=== PATIENT | male | born 1965 | race Caucasian/White ===

== ENCOUNTER → 2016-06-26 | Outpatient (CLI) | payer OTHER ==
[~2016-06-26] MED LIST: A/B OTIC AD; ALBUTEROL17 GM INH; AMOXICILLIN500 M1 PO; AMOXIL500 MG PO; ASPIRIN81 MG PO; AURALGAN EAR DR14 ML OT; BACTRIM DS TABL1 TA1; BACTRIM DS TABL1 TA1 PO; CINNAMON BARK1 GM PO; CLARITIN10 M2 PO; CORTISPORI10 ML OTIC AD; COUMADIN PO; FLOMAX0.4 M1 PO; GLUCOTROL PO; HEARTBURN RELIE75 M2 PO; HYDROCHLOROTHIA25 MG PO; INVOKANA300 MG PO; K-DUR20 ME1 PO; LANTUS100 U/ML SUBQ; LASIX20 MG PO; LIPITOR80 MG PO; LISINOPRIL PO; LOPRESSOR PO; LORTAB 5/500 TA1 TA1 PO; MECLIZINE HCL12.5 M2 PO; MECLIZINE HCL12.5 MG PO; METFORMIN HCL500 M1 PO; NO MEDICATIONS; NORCO 10-325 TA1 TAB PO; PRINIVIL40 MG PO; TOPAMAX PO; TOPROL XL PO; ULTRAM PO; XARELTO10 MG PO
--- NOTE | ~2016-06-26 | CR213 ---
[facility]. [facility] A Service of [facility] & [facility] / [facility] RADIOLOGY TEXT RESULTS PATIENT: CAS MORRIS LOCATION: [facility] : 63 UNIT #: [id number] AGE: [address]: SHAVONNE SALMERON SEX: M ORDER DR: [id number] [place] [id number] O MR#: [id number] Acc #: [id number] NAME: CAS MORRIS : 1965 SEX: M STUDY DATE/TIME: 06/26/2016 16:43 UNIT: [facility] ROOM: STUDY DESCRIPTION: CR Ribs Unilateral 2 View Rt Attending Physician: Shavonne Salmeron M.D. Referring Physician: Shavonne Salmeron M.D. Primary Care Physician: Elliott Naqvi M.D. MEDICAL IMAGING REPORT This report is preliminary unless electronic signature is present. EXAM Right rib series, 06/26/2016. HISTORY 50-year-old male complaining of right anterior rib pain after a fall last evening. FINDINGS The examination shows a nondisplaced fracture of the right anterior 7th rib of indeterminate age. Remaining ribs are within normal limits. No visible pneumothorax or pleural effusion. IMPRESSION Right anterior seventh rib fracture. No pneumothorax. Dictated by... Elliott Matute M.D. THIS IS AN ELECTRONICALLY VERIFIED REPORT Elliott Matute M.D. at 06/29/2016 5:58 AM CHARAN/ty TD: 06/27/2016 11:34 JOB #: [id number] MEDICAL IMAGING REPORT Page 1 of 1
== END | disposition home or self-care (01) ==
LOC: SRAD 16:35
DX: R07.89 Other chest pain (principal); S22.31XA Fracture of one rib, right side, initial encounter for closed fracture
CPT/HCPCS: 71100